=== PATIENT | male | born 1995 | race Asian ===

== ENCOUNTER 2016-09-15 20:47 | Inpatient (IN) | payer OTHER ==
[~2016-09-15] VITALS: Ht 177.8 cm; Wt 71.2 kg
[2016-09-15 21:29] LABS: URINE APPEARANCE CLOUDY (CLEAR); URINE BILIRUBIN NEG (NEG); URINE COLOR DK YELLOW; URINE NITRITE NEG (NEG); URINE PH 5.5 (4.5-7.5); URINE SPECIFIC GRAVITY 1.032 (1.000-1.030); UROBILINOGEN NEG (NEG)
[2016-09-15 21:30] LABS: MANUAL MICROSCOPIC REQUIRED? NO; REVIEW REQ? YES
[2016-09-15 21:30] LABS: BASO % 0.2 %; BASO ABS # 0.01 K/uL (0-0.2); COMPLETE YES; HEMATOCRIT 43.3 % (42-52); IG% 0.2 %; LYMPH % 33.3 %; LYMPH ABS # 1.97 K/uL (1.2-3.4); MEAN CELL VOLUME 90.6 fL (80-100); MEAN CORPUSCULAR HEMOGLOBIN 31.4 pg (25-34); MEAN CORPUSCULAR HGB CONC 34.6 g/dl (32-36); MONO % 3.4 %; NEUT % 59.9 %; PLATELET COUNT 240 K/uL (130-400); RED BLOOD COUNT 4.78 M/uL (4.7-6.1); WHITE BLOOD COUNT 5.92 K/uL (4.8-10.8)
[2016-09-15 21:38] LABS: URINE MUCUS PRESENT (NONE PRSENT); ZZUR CULT IF INDIC CLEAN CATCH YES
[2016-09-15 21:50] LABS: ACETAMINOPHEN < 2 ug/ml (10-30)
--- NOTE | 2016-09-15 21:52 | EMERGENCY ROOM VISIT NOTE ---
History Report prepared by Netta: Melissa Bender Under the Supervision of: Dr. Rainer Gaston D.O. First contact with patient: 21:32 Chief Complaint: MENTAL HEALTH EVALUATION Stated Complaint: MENTAL HEALTH History of Present Illness The patient is a 21 year old male who presents to the Emergency Room with complaints of persistent suicidal thoughts starting about a month ago. He had thoughts of wanting to jump off of the parking deck on campus. The patient reports depression related to school and relationships. The patient described his suicidal thoughts and depression to his [employer] at [facility] who called the police. The patient was evaluated by [facility] on site and was referred to the Emergency Room. He denies any suicide attempts, homicidal ideation, or hallucinations. He denies any recent alcohol use. He used marijuana about a month ago. He currently denies any pain. He denies fevers, chills, or any other complaints. Source of History: patient Onset: about a month ago Position: other (global) Symptom Intensity: No pain Quality: other (suicidal thoughts) Timing: other (persistent) Associated Symptoms: No chills, No fevers Review of Systems See HPI for pertinent positives and negatives. A total of ten systems were reviewed and were otherwise negative. Past Medical & Surgical Medical Problems: (1) No Known Active Medical Problems Family History Patient reports no known family medical history. Social History Smoking Status: Current Every Day Smoker Alcohol Use: none Drug Use: marijuana Marital Status: single Occupation Status: [employer] student Current/Historical Medications No Active Prescriptions or Reported Meds Allergies Coded Allergies: No Known Allergies (Unverified , 09/15/16) Physical Exam Vital Signs Date Time Temp Pulse Resp B/P Pulse Ox O2 Delivery O2 Flow Rate FiO2 09/15/16 20:53 37.0 83 18 137/91 97 Room Air Physical Exam GENERAL: Awake, alert, well-appearing, in no distress HENT: Normocephalic, atraumatic. Oropharynx unremarkable. EYES: Normal conjunctiva. Sclera non-icteric. NECK: Supple. No nuchal rigidity. FROM. No JVD. RESPIRATORY: Clear to auscultation. CARDIAC: Regular rate, normal rhythm. Extremities warm and well perfused. Pulses equal. ABDOMEN: Soft, non-distended. No tenderness to palpation. No rebound or guarding. No masses. RECTAL: Deferred. MUSCULOSKELETAL: Chest examination reveals no tenderness. The back is symmetrical on inspection without obvious abnormality. There is no CVA tenderness to palpation. No joint edema. LOWER EXTREMITIES: Calves are equal size bilaterally and non-tender. No edema. No discoloration. NEURO: Normal sensorium. No sensory or motor deficits noted. PSYCHIATRIC: Depressed affect. SKIN: No rash or jaundice noted. Medical Decision & Procedures Laboratory Results 09/15/16 21:16 Red Blood Count 4.78, Mean Corpuscular Volume 90.6, Mean Corpuscular Hemoglobin 31.4, Mean Corpuscular Hemoglobin Concent 34.6, Mean Platelet Volume 10.0, Neutrophils (%) (Auto) 59.9, Lymphocytes (%) (Auto) 33.3, Monocytes (%) (Auto) 3.4, Eosinophils (%) (Auto) 3.0, Basophils (%) (Auto) 0.2, Neutrophils # (Auto) 3.55, Lymphocytes # (Auto) 1.97, Monocytes # (Auto) 0.20, Eosinophils # (Auto) 0.18, Basophils # (Auto) 0.01 09/15/16 21:16 Test 09/15/16 21:07 09/15/16 21:16 Urine Color DK YELLOW Urine Appearance CLOUDY (CLEAR) Urine pH 5.5 (4.5-7.5) Urine Specific [place] 1.032 (1.000-1.030) Urine Protein NEG (NEG) Urine Glucose (UA) NEG (NEG) Urine Ketones 1+ (NEG) Urine Occult Blood NEG (NEG) Urine Nitrite NEG (NEG) Urine Bilirubin NEG (NEG) Urine Urobilinogen NEG (NEG) Urine Leukocyte Esterase NEG (NEG) Urine WBC (Auto) 1-5 /hpf (0-5) Urine RBC (Auto) 0-4 /hpf (0-4) Urine Hyaline Casts (Auto) 1-5 /lpf (0-5) Urine Epithelial Cells (Auto) 5-10 /lpf (0-5) Urine Bacteria (Auto) 1+ (NEG) Urine Crystals CALCIUM OXALATE (NONE Urine Mucus PRESENT (NONE PRSENT) Urine Opiates Screen NEG (NEG) Urine Methadone, Qualitative NEG (NEG) Urine Barbiturates NEG (NEG) Urine Phencyclidine (PCP) Level NEG (NEG) Ur Amphetamine/Methamphetamine NEG (NEG) MDMA (Ecstasy) Screen NEG (NEG) Urine Benzodiazepines Screen NEG (NEG) Urine Cocaine Metabolite NEG (NEG) Urine Marijuana (THC) NEG (NEG) White Blood Count 5.92 K/uL (4.8-10.8) Red Blood Count 4.78 M/uL (4.7-6.1) Hemoglobin 15.0 g/dL (14.0-18.0) Hematocrit 43.3 % (42-52) Mean Corpuscular Volume 90.6 fL (80-100) Mean Corpuscular Hemoglobin 31.4 pg (25-34) Mean Corpuscular Hemoglobin Concent 34.6 g/dl (32-36) Platelet Count 240 K/uL (130-400) Mean Platelet Volume 10.0 fL (7.4-10.4) Neutrophils (%) (Auto) 59.9 % Lymphocytes (%) (Auto) 33.3 % Monocytes (%) (Auto) 3.4 % Eosinophils (%) (Auto) 3.0 % Basophils (%) (Auto) 0.2 % Neutrophils # (Auto) 3.55 K/uL (1.4-6.5) Lymphocytes # (Auto) 1.97 K/uL (1.2-3.4) Monocytes # (Auto) 0.20 K/uL (0.11-0.59) Eosinophils # (Auto) 0.18 K/uL (0-0.5) Basophils # (Auto) 0.01 K/uL (0-0.2) RDW Standard Deviation 39.9 fL (36.4-46.3) RDW Coefficient of Variation 11.9 % (11.5-14.5) Immature Granulocyte % (Auto) 0.2 % Immature Granulocyte # (Auto) 0.01 K/uL (0.00-0.02) Anion Gap 10.0 mmol/L (3-11) Est Creatinine Clear Calc Drug Dose 128.6 ml/min Estimated GFR () 134.6 Estimated GFR (Non- 116.1 BUN/Creatinine Ratio 18.8 (10-20) Calcium Level 9.3 mg/dl (8.5-10.1) Total Bilirubin 0.5 mg/dl (0.2-1) Aspartate Amino Transf (AST/SGOT) 17 U/L (15-37) Alanine Aminotransferase (ALT/SGPT) 20 U/L (12-78) Alkaline Phosphatase 92 U/L (45-117) Total Protein 7.7 gm/dl (6.4-8.2) Albumin 4.5 gm/dl (3.4-5.0) Globulin 3.2 gm/dl (2.5-4.0) Albumin/Globulin Ratio 1.4 (0.9-2) Thyroid Stimulating Hormone (TSH) 1.020 uIu/ml (0.300-4.500) Salicylates Level < 1.7 mg/dl (2.8-20) Acetaminophen Level < 2 ug/ml (10-30) Ethyl Alcohol mg/dL < 3.0 mg/dl (0-3) Laboratory results reviewed by me ED Course 2131: The patient was evaluated in room A07. A complete history and physical exam was performed. 2244: Upon reexamination, the patient was resting comfortably. I discussed the test results and treatment plan with him. The patient will be evaluated for further management at [address] [place] [address]. Medical Decision Differential diagnosis includes but is not limited to depression, suicidal ideation, anxiety. pt in in no distress; will admit psychiatry unit Impression Primary Impression: Suicidal ideation Additional Impression: Depression Scribe Attestation The scribe's documentation has been prepared under my direction and personally reviewed by me in its entirety. I confirm that the note above accurately reflects all work, treatment, procedures, and medical decision making performed by me. Departure Information Dispostion Mental Health Acute Care Prescriptions No Active Prescriptions or Reported Meds Referrals No Doctor, Assigned (PCP) Patient Instructions My [facility] Problem Qualifiers
[2016-09-15 21:54] LABS: BUN/CREATININE RATIO 18.8 (10-20); CREATININE 0.93 mg/dl (0.60-1.40); POTASSIUM 3.5 mmol/L (3.5-5.1)
[2016-09-15 22:01] LABS: BENZODIAZEPINE, URINE NEG (NEG); COCAINE,URINE NEG (NEG); PHENCYCLIDINE, URINE NEG (NEG)
[2016-09-15 22:02] LABS: CALCIUM 9.3 mg/dl (8.5-10.1)
[2016-09-15 22:04] LABS: ALB/GLOB RATIO 1.4 (0.9-2); THYROID STIMULATING HORMONE 1.02 uIu/ml (0.300-4.500)
[2016-09-15] MEDS ORDERED: NURSING VERBAL MED ORDER ONE (23:15)
[2016-09-15 23:58] VITALS: O2SAT 95
[2016-09-16 00:14] VITALS: BP 133/93; PULSE 77; TEMP 36.6; Ht 177.8 cm; Wt 71.2 kg
[2016-09-16] MEDS ORDERED: ALUMINUM/MAGNESIUM SUSP 30 ML UDC PO PRN (01:00)
[2016-09-16] MEDS ORDERED: ACETAMINOPHEN 325 MG TAB PO PRN (01:00)
[2016-09-16] MEDS ORDERED: SODIUM CHLORIDE 0.65% NA SOLN 45 ML (OCEAN) PRN (01:00)
[2016-09-16] MEDS ORDERED: MAGNESIUM HYDROXIDE SUSP 30 ML UDC PO PRN (01:00)
[2016-09-16] MEDS ORDERED: BISMUTH SUBSALICYLATE PER ML OMNICELL CHARGE PO PRN (01:00)
[2016-09-16] MEDS ORDERED: hydrOXYzine HCL 25 MG TAB PO PRN ×2 (01:00)
[2016-09-16 06:49] VITALS: BP_SYST 120; BP_SYST 132; BP_DIAS 75; BP_DIAS 81; PULSE 64; PULSE 69; TEMP 36
--- NOTE | 2016-09-16 11:38 | Psychiatric History & Physical ---
History Date of Service September 16, 2016. Identifying Data Guanakito Travis is a 21-year-old male who is currently a [employer] student. He presented to the emergency with severe depression, suicidal thoughts with a plan to jump from the parking garage. Information is gathered from the patient and considered to be reliable. Chief Complaint "I have problems making connections.". History of Present Illness Guanakito Travis is a 21-year-old [employer] student from [employer], who reports that he has had increasing depression for the last 3 months. His stress started about a year ago. He and a friend purchased a car together and while driving from here to [place], the car . His friend wanted him to take care of all of the costs for repair and this caused a rift in their relationship. The patient then distanced himself from the [facility] community that he had been so close with. 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 Through that organization, he had been provided money from the [facility] [employer] for a project which she never followed through on. He has been feeling increasingly stressed and sad about these things. He began to have suicidal thoughts about one month ago and even went to the parking garage to check it out. He has been seeing a counselor, Cristino, at [facility] but has not seen a psychiatrist and has never been on medications. Yesterday, he had been talking with his preceptor at the [place] and revealed his suicidal thoughts who then recommended he come to the emergency room. The patient continues to be very depressed today and acknowledging his suicidal thoughts and plan. He reports that his sleep has been disturbed for the last 3 months, difficulty staying asleep although will get 8 hours of broken sleep per night his appetite has been "worse" and has lost more than several pounds over the last 3 months. He reports anxiety with panic attacks that are usually triggered by school stress and by the stress of being disconnected from his [facility] community. He denies problems with anger. He denies clear auditory or visual hallucinations but does endorse thought broadcasting, feeling that his girlfriend can understand his thinking. He also feels that his thoughts and behaviors are influenced by others and gives an example where his girlfriends family was talking about bread and eggs and he felt that this caused him the next day to want to go on a particular route to the grocery store. He also endorses manic symptoms. He said approximately one year ago he started spending a lot of money on travel. This was when he bought the car with a friend and they traveled between [place] and [place] over the course of 3 months. He said that he was taking risks that he doesn't normally take, was spending a lot of money and purchasing multiple credit cards. He says he has a history of having times of extreme happiness alternating with times of severe sadness. Past Psychiatric History Current OP Treatment: therapist Prior OP Treatment: no prior treatment Prior Psych Hospitalizations: none Access to a Gun: No Suicide Attempts: No Past Medication Trials None Past Medical/Surgical History History of Concussion/Seizure: No (1) none Allergies Allergies: Coded Allergies: No Known Allergies (Unverified , 09/15/16) Home Medications No Active Prescriptions or Reported Meds Family History Patient reports no known family medical history. History of Suicide: No History of Substance Abuse: No Psychiatric History: Yes (grandfather with schizophrenia) Alcohol Use Alcohol Use In Past 12 Months: Yes (the patient endorses occasional alcohol use with last consumption one month ago) AUDIT Total Score: 0 Smoking Use Smoking Status: Never Smoker Substance History The patient occasionally smokes marijuana, last consumption one month ago. He denies the use of other street drugs. Personal History Lives in: on campus in a dorm. Childhood: Grew up in [employer] [facility]. He was raised by his mother who is a physician and his father who is an technical staff engineer. He has 2 brothers and 2 sisters all of whom are still in [employer] [facility]. He is currently in a relationship with a girlfriend for the last 2 years. Education: started college Work History: Does not work outside of school Relationship History: never Children: none Legal History: none Psychological Trauma History: Other (denies) Review of Systems Constitutional: other (poor focus) Eyes: denies: as stated in HPI, blurred vision, discharge, double vision, eye pain, itching, no symptoms, other, photophobia, redness, tearing, visual changes ENT: denies: dental pain, ear discharge, ear pain, epistaxis, gum swelling, loss of hearing, mouth pain, mouth swelling, nasal congestion, nasal pain, no symptoms reported, other, rhinorrhea, see HPI, sore throat, stidor, throat swelling, tinnitus Cardiovascular: denies: chest pain, chest pressure, chest tightness, diaphoresis, no symptoms reported, other, palpitations, see HPI, syncope Respiratory: reports: short of breath (with anxiety) Gastrointestinal: diarrhea (occasional) Genitourinary - Male: reports: other (occasional difficulty initiating stream) Musculoskeletal: denies no symptoms reported, denies see HPI, denies back pain , denies gout, denies joint pain, denies joint swelling, denies muscle pain, denies muscle stiffness, denies neck pain, denies other Integumentary: denies no symptoms reported, denies see HPI, denies change in color, denies change in hair/nails, denies dryness, denies lesions, denies lumps , denies rash, denies other Neurologic: denies: dizziness, focal weakness, general weakness, headache, lethargy, memory loss, no symptoms, numbness, other, paresthesias, pre-existing deficit, see HPI, seizure, tics, tingling, tremors, vertigo Endocrine: denies: as stated in HPI, cold intolerance, goiter, hair changes, heat intolerance, no symptoms, other, polydipsia, polyuria, skin changes Hematologic / Lymphatic: denies: abnormal clotting, adenopathy, anemia, as stated in HPI, easy bleeding, easy bruising, gums bleeding, no symptoms, other, petechiae Examination Physical Examination Exam performed by Dr. Gaston in the ER has been reviewed and accepted his medical clearance for our unit Vital Signs Vital Signs Past 12 Hours Date Time Temp Pulse Resp B/P Pulse Ox O2 Delivery O2 Flow Rate FiO2 09/16/16 06:49 36.0 69 16 132/81 64 120/75 09/16/16 00:14 36.6 77 18 133/93 09/15/16 23:58 76 18 135/76 95 Laboratory Results Last 24 Hours Test 09/15/16 21:07 09/15/16 21:16 Urine Color DK YELLOW Urine Appearance CLOUDY Urine pH 5.5 Urine Specific [place] 1.032 Urine Protein NEG Urine Glucose (UA) NEG Urine Ketones 1+ Urine Occult Blood NEG Urine Nitrite NEG Urine Bilirubin NEG Urine Urobilinogen NEG Urine Leukocyte Esterase NEG Urine WBC (Auto) 1-5 /hpf Urine RBC (Auto) 0-4 /hpf Urine Hyaline Casts (Auto) 1-5 /lpf Urine Epithelial Cells (Auto) 5-10 /lpf Urine Bacteria (Auto) 1+ Urine Crystals CALCIUM OXALATE Urine Mucus PRESENT Urine Opiates Screen NEG Urine Methadone, Qualitative NEG Urine Barbiturates NEG Urine Phencyclidine (PCP) Level NEG Ur Amphetamine/Methamphetamine NEG MDMA (Ecstasy) Screen NEG Urine Benzodiazepines Screen NEG Urine Cocaine Metabolite NEG Urine Marijuana (THC) NEG White Blood Count 5.92 K/uL Red Blood Count 4.78 M/uL Hemoglobin 15.0 g/dL Hematocrit 43.3 % Mean Corpuscular Volume 90.6 fL Mean Corpuscular Hemoglobin 31.4 pg Mean Corpuscular Hemoglobin Concent 34.6 g/dl Platelet Count 240 K/uL Mean Platelet Volume 10.0 fL Neutrophils (%) (Auto) 59.9 % Lymphocytes (%) (Auto) 33.3 % Monocytes (%) (Auto) 3.4 % Eosinophils (%) (Auto) 3.0 % Basophils (%) (Auto) 0.2 % Neutrophils # (Auto) 3.55 K/uL Lymphocytes # (Auto) 1.97 K/uL Monocytes # (Auto) 0.20 K/uL Eosinophils # (Auto) 0.18 K/uL Basophils # (Auto) 0.01 K/uL RDW Standard Deviation 39.9 fL RDW Coefficient of Variation 11.9 % Immature Granulocyte % (Auto) 0.2 % Immature Granulocyte # (Auto) 0.01 K/uL Sodium Level 138 mmol/L Potassium Level 3.5 mmol/L Chloride Level 103 mmol/L Carbon Dioxide Level 25 mmol/L Anion Gap 10.0 mmol/L Blood Urea Nitrogen 18 mg/dl Creatinine 0.93 mg/dl Est Creatinine Clear Calc Drug Dose 128.6 ml/min Estimated GFR () 134.6 Estimated GFR (Non- 116.1 BUN/Creatinine Ratio 18.8 Random Glucose 84 mg/dl Calcium Level 9.3 mg/dl Total Bilirubin 0.5 mg/dl Aspartate Amino Transf (AST/SGOT) 17 U/L Alanine Aminotransferase (ALT/SGPT) 20 U/L Alkaline Phosphatase 92 U/L Total Protein 7.7 gm/dl Albumin 4.5 gm/dl Globulin 3.2 gm/dl Albumin/Globulin Ratio 1.4 Thyroid Stimulating Hormone (TSH) 1.020 uIu/ml Salicylates Level < 1.7 mg/dl Acetaminophen Level < 2 ug/ml Ethyl Alcohol mg/dL < 3.0 mg/dl Mental Examination During interview pt is: alert and oriented Appearance: appropriately dressed, appropriately groomed Eye contact is: good (at times staring) Motor behavior is: steady gait & station, no abnormal motor movements Speech: normal in rate, rhythm & volume (with accent) Affect: depressed, flat Mood is: depressed, anxious Thought process: goal directed Thought content: cognitive distortions, ideas of reference, thought broadcasting Suicidal thought are: present, Plan: present, Intent: denied Homicidal thoughts are: denied Hallucinations: denies auditory, denies visual Cognition: memory grossly intact, attention grossly intact Intelligence estimated to be: average Insight: impaired Judgement: impaired Impression / Recommendations Impression 21-year-old [employer] student who presents with depression and suicidality. He also provides a history of what may be a manic episode or year ago as well as mood lability over a longer period of time. He is also endorsing psychotic symptoms that could be a function of his bipolar disorder, the primary mental illness, or a psychotic component to his depression. For now we will approach this as a psychosis unspecified and start Risperdal 0.5 mg a.m. and 1 mg at bedtime. This will provide some mood stabilization in addition to targeting his psychosis. If mood remains persistently depressed we'll consider adding an antidepressant. His mother will be arriving from [employer] tomorrow and we will attempt to get additional history from her to help us clarify her diagnosis. We will order fasting labs for monitoring while on an atypical. At this time, the patient requires inpatient mental health treatment due to the severity of his condition and the risk for self-harm if discharged. Inventory Assets Strengths: Intelligence, support of family Needs: To abstain from cannabis Risk Factors Assessment Male: Yes : No /single/: Yes Higher / Fall in social status: No Access to guns: No Health problems: No Mental Health Diagnoses: No Substance use disorders: Yes Previous attempt: No Protective Factors Assessment : No Responsible for young children: No Employed: No Stable relationships: Yes Supportive family: Yes Recommendations (1) Unspecified psychosis 09/16 -Start Risperdal 0.5 mg a.m. and 1 mg at bedtime -Consider the use of an antidepressant if mood does not improve -Differential includes bipolar disorder given his history of spending and risk-taking behaviors -Differential also includes major depressive disorder severe with psychotic features -There is a family history and grandfather schizophrenia and so cannot rule out a primary thought disorder he will need to be followed over time -Obtain supplemental history from mother when she arrives from [employer] tomorrow -The patient will need psychiatric aftercare -Every 15 minute checks for safety -Reality orientation -Encourage participation in group and individual counseling -Obtain supplemental information from his therapist, Cristino at [facility] -Contact office of student affairs as needed Has been reviewed with Dr. Mildred Osullivan CPT Code Initial Hospital Care: [id number]
--- NOTE | 2016-09-16 11:46 | Psychiatric History & Physical ---
History Date of Service September 16, 2016. Identifying Data Guanakito Travis is a 21-year-old male who currently lives in [] [alone] with []. Guanakito Travis was admitted on a [201 voluntary] [302 involuntary] commitment. Patient is admitted from [home] [transfer from the medical floor]. The patient was brought to the ED by the [police] [family] [ambulance] [self transport]. Information provided by the patient is considered to be [reliable] [unreliable]. Chief Complaint "[]". Allergies Allergies: Coded Allergies: No Known Allergies (Unverified , 09/15/16) Home Medications No Active Prescriptions or Reported Meds Family History Patient reports no known family medical history. Alcohol Use Alcohol Use In Past 12 Months: No (denies) AUDIT Total Score: 0 Smoking Use Smoking Status: Never Smoker Examination Vital Signs Vital Signs Past 12 Hours Date Time Temp Pulse Resp B/P Pulse Ox O2 Delivery O2 Flow Rate FiO2 09/16/16 06:49 36.0 69 16 132/81 64 120/75 09/16/16 00:14 36.6 77 18 133/93 09/15/16 23:58 76 18 135/76 95 Laboratory Results Last 24 Hours Test 09/15/16 21:07 09/15/16 21:16 Urine Color DK YELLOW Urine Appearance CLOUDY Urine pH 5.5 Urine Specific [place] 1.032 Urine Protein NEG Urine Glucose (UA) NEG Urine Ketones 1+ Urine Occult Blood NEG Urine Nitrite NEG Urine Bilirubin NEG Urine Urobilinogen NEG Urine Leukocyte Esterase NEG Urine WBC (Auto) 1-5 /hpf Urine RBC (Auto) 0-4 /hpf Urine Hyaline Casts (Auto) 1-5 /lpf Urine Epithelial Cells (Auto) 5-10 /lpf Urine Bacteria (Auto) 1+ Urine Crystals CALCIUM OXALATE Urine Mucus PRESENT Urine Opiates Screen NEG Urine Methadone, Qualitative NEG Urine Barbiturates NEG Urine Phencyclidine (PCP) Level NEG Ur Amphetamine/Methamphetamine NEG MDMA (Ecstasy) Screen NEG Urine Benzodiazepines Screen NEG Urine Cocaine Metabolite NEG Urine Marijuana (THC) NEG White Blood Count 5.92 K/uL Red Blood Count 4.78 M/uL Hemoglobin 15.0 g/dL Hematocrit 43.3 % Mean Corpuscular Volume 90.6 fL Mean Corpuscular Hemoglobin 31.4 pg Mean Corpuscular Hemoglobin Concent 34.6 g/dl Platelet Count 240 K/uL Mean Platelet Volume 10.0 fL Neutrophils (%) (Auto) 59.9 % Lymphocytes (%) (Auto) 33.3 % Monocytes (%) (Auto) 3.4 % Eosinophils (%) (Auto) 3.0 % Basophils (%) (Auto) 0.2 % Neutrophils # (Auto) 3.55 K/uL Lymphocytes # (Auto) 1.97 K/uL Monocytes # (Auto) 0.20 K/uL Eosinophils # (Auto) 0.18 K/uL Basophils # (Auto) 0.01 K/uL RDW Standard Deviation 39.9 fL RDW Coefficient of Variation 11.9 % Immature Granulocyte % (Auto) 0.2 % Immature Granulocyte # (Auto) 0.01 K/uL Sodium Level 138 mmol/L Potassium Level 3.5 mmol/L Chloride Level 103 mmol/L Carbon Dioxide Level 25 mmol/L Anion Gap 10.0 mmol/L Blood Urea Nitrogen 18 mg/dl Creatinine 0.93 mg/dl Est Creatinine Clear Calc Drug Dose 128.6 ml/min Estimated GFR () 134.6 Estimated GFR (Non- 116.1 BUN/Creatinine Ratio 18.8 Random Glucose 84 mg/dl Calcium Level 9.3 mg/dl Total Bilirubin 0.5 mg/dl Aspartate Amino Transf (AST/SGOT) 17 U/L Alanine Aminotransferase (ALT/SGPT) 20 U/L Alkaline Phosphatase 92 U/L Total Protein 7.7 gm/dl Albumin 4.5 gm/dl Globulin 3.2 gm/dl Albumin/Globulin Ratio 1.4 Thyroid Stimulating Hormone (TSH) 1.020 uIu/ml Salicylates Level < 1.7 mg/dl Acetaminophen Level < 2 ug/ml Ethyl Alcohol mg/dL < 3.0 mg/dl Impression / Recommendations CPT Code Initial Hospital Care: [id number]
[2016-09-16] MEDS ORDERED: RISPERIDONE ODT 0.5MG PO ONE (12:00)
[2016-09-16] MEDS ORDERED: RISPERIDONE ODT 1MG PO SCH (22:00)
[2016-09-17 06:50] VITALS: BP_SYST 114; BP_SYST 127; BP_DIAS 68; BP_DIAS 85; PULSE 68; PULSE 72; TEMP 36.8
[2016-09-17 08:17] LABS: CHOLESTEROL/HDL RATIO 2.4
[2016-09-17] MEDS ORDERED: RISPERIDONE ODT 0.5MG PO SCH (09:00)
--- NOTE | 2016-09-17 10:55 | Psychiatric Progress Notes ---
Progress Note Date of Service September 17, 2016. 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 Chief Complaint "I want to be discharged from this place.". Subjective Patient was seen & assessed interval progress reviewed with Treatment Team. The patient comes to my office asking to be discharged. He starts by saying that he doesn't feel comfortable here, being unable to have his phone or computer, saying he would be more comfortable at home. He denies that he is having any more suicidal thought and today denies thought broadcasting or ideas of reference. As he goes on however, he says that he thinks another patient thinks that he is "worthless" despite that person never having said that, "I just know.". He also believes that he is causing trouble to the staff. On asbestos hazard abatement worker, the nurses reported that he was paranoid, thinking that we knew that his girlfriend wanted to breakup with him, wanting to get his phone to call her. He goes on to wonder whether he had ADHD because he has had trouble focusing for the last several months. He tries to study and his mind will be distracted by other things, but doesn't say what. We discuss the priority of treating his mood and thought distortions before a good evaluation could be made of these reports. I explain the process of the 72 hour notice and encourage him that 1 day is not enough given the seriousness of his SI with plan. His mother is to arrive today from [facility] Review of Systems Constitutional: + problem reported (Feels uncomfortable in this environment) ENT: No dental problems, No hearing loss, No nasal symptoms, No problem reported, No sore throat, No tinnitus, No trouble swallowing, No unusual epistaxis Respiratory: No cough, No dyspnea at rest, No dyspnea on exertion, No hemoptysis, No problem reported, No shortness of breath, No sputum, No wheezing Cardiovascular: No PND, No chest pain, No claudication, No edema, No orthopnea , No palpitations, No problem reported Abdomen: No GI bleeding, No constipation, No diarrhea, No nausea, No pain, No problem reported, No vomiting Musculoskeletal: No calf pain, No joint pain, No muscle pain, No problem reported, No swelling Neurologic: No balance problems, No memory loss, No numbness/tingling, No paralysis, No problem reported, No vertigo, No weakness Psychiatric: + problem reported (paranoia) Integumentary: No bleeding, No color change, No itch, No new/changing skin lesions, No problem reported, No rash Sleep Information Total Hours of Sleep: 5.00 Meal Information Percent of Breakfast Consumed: 100 Percent of Lunch Consumed: 100 Percent of Dinner Consumed: 100 Mental Status Exam During interview pt is: alert and oriented Appearance: appropriately dressed, appropriately groomed Eye contact is: good (at times staring) Motor behavior is: steady gait & station, no abnormal motor movements Speech: normal in rate, rhythm & volume (with accent) Affect: depressed, flat Mood is: depressed, anxious Thought process: goal directed Thought content: paranoid, cognitive distortions Suicidal thought are: denied, Plan: denied, Intent: denied Homicidal thoughts are: denied Hallucinations: denies auditory, denies visual Cognition: memory grossly intact, attention grossly intact Intelligence estimated to be: average Insight: impaired Judgement: impaired Impression The patient is already asking to leave and will sign a 72 hr notice. He presents with more paranoid ideation today, feeling persecuted by his peers, and thinking staff is part of a conspiracy about his girlfriend breaking up with him. Will increase Risperdal to 1 mg. BID. Mother is to arrive today and will get supplemental information and her estimations of his condition. Plan (1) Unspecified psychosis 09/16 -Start Risperdal 0.5 mg a.m. and 1 mg at bedtime -Consider the use of an antidepressant if mood does not improve -Differential includes bipolar disorder given his history of spending and risk-taking behaviors -Differential also includes major depressive disorder severe with psychotic features -There is a family history and grandfather schizophrenia and so cannot rule out a primary thought disorder he will need to be followed over time -Obtain supplemental history from mother when she arrives from [facility] tomorrow -The patient will need psychiatric aftercare -Every 15 minute checks for safety -Reality orientation -Encourage participation in group and individual counseling -Obtain supplemental information from his therapist, Cristino at [facility] -Contact office of student affairs as needed 09/17 - Increase Risperdal to 1 mg. BID - Has signed a 72 hr notice - Obtain supplemental from mother upon her arrival Discharge / Aftercare Planning Primary Care Physician: Name: [facility] Dr. Jolley, mother back home Therapist: Name: Bernadine Zabala Visit Code E&M Code: 47586 Inventory Assets Strengths: Intelligence, support of family Needs: To abstain from cannabis Risk Factors Assessment Male: Yes : No /single/: Yes Higher / Fall in social status: No Health problems: No Mental Health Diagnoses: No Substance use disorders: Yes Previous attempt: No Protective Factors Assessment : No Responsible for young children: No Employed: No Stable relationships: Yes Supportive family: Yes Data Vital Signs Last 24 Hrs: Date Time Temp Pulse Resp B/P Pulse Ox O2 Delivery O2 Flow Rate FiO2 09/17/16 06:50 36.8 68 14 114/68 72 127/85 Meds Administered Last 24 Hrs: Meds Administered (Past 24Hrs) Medications (Trade) Dose Ordered Sig/Elizabeth Route Start Time Stop Time Status Last Admin Dose Admin Risperidone (Risperdal M Tab) 0.5 mg QAM PO 09/17/16 09:00 10/17/16 08:59 09/17/16 08:44 0.5 MG Risperidone (Risperdal M Tab) 0.5 mg 1200 ONCE PO 09/16/16 12:00 09/16/16 12:01 DC 09/16/16 11:44 0.5 MG Risperidone (Risperdal M Tab) 1 mg HS PO 09/16/16 22:00 10/16/16 21:59 09/16/16 21:27 1 MG Lab Results Last 24 Hrs: Last 24 Hours Test 09/17/16 07:11 Fasting Glucose 85 mg/dl Triglycerides Level 47 mg/dl Cholesterol Level 118 mg/dl HDL Cholesterol 50 mg/dl LDL Cholesterol, Calculated 59 mg/dl VLDL Cholesterol, Calculated 9 mg/dl Cholesterol/HDL Ratio 2.4
[2016-09-17] MEDS: RISPERIDONE ODT 1MG PO SCH (21:58)
[2016-09-18 06:45] VITALS: BP_SYST 115; BP_SYST 133; BP_DIAS 73; BP_DIAS 86; PULSE 62; PULSE 76; TEMP 36.4
[2016-09-18] MEDS: RISPERIDONE ODT 1MG PO SCH (08:35)
[2016-09-18] MEDS ORDERED: RSP2 PO (11:07)
--- NOTE | 2016-09-18 11:14 | Discharge Instructions ---
Discharge Information Report Includes Report will include the: Discharge Instructions & Summary Admission Admission Date / Time: September 15, 2016 at 23:05 Reason for Admission: Depressive Disorder, Nos Discharge Discharge Diagnosis / Problem: Depression with psychotic features Condition at Discharge: Fair Discharge Goals Goal(s): Decrease discomfort, Improve disease control, Prevent Disease Progression Activity Recommendations Activity Limitations: resume your previous activity . Instructions / Follow-Up Instructions / Follow-Up . SPECIAL CARE INSTRUCTIONS: 1. Follow through with your scheduled aftercare appointments. If unable to keep an appointment, please call to reschedule. 2. Take your medication only as prescribed. Medication should not be changed or stopped without the approval of your doctor. In the event of worsening symptoms or concerns about side effects, contact your doctor immediately. 3. Utilize new healthy coping skills, anger management skills, and stress management skills learned during your hospitalization. Journal feelings and process them with a support person. Identify stressors or situations that may result in relapse, deterioration or inappropriate behaviors and develop a plan to deal with those issues. 4. If your coping skills are ineffective and you are in crisis, contact your outpatient providers for direction. If unable to reach your providers, please call the CAN HELP LINE AT or go to the closest Emergency Room. 5. Avoid alcohol and un-prescribed drugs. 6. You have been provided with the Mental Health Advance Directives Pamphlet for your review. AFTERCARE APPOINTMENTS: * Please call your insurance company prior to your scheduled appointment to confirm your aftercare providers are covered. Take your insurance information to your appointments. . Discharge / Aftercare Planning Primary Care Physician: Name: [facility] Dr. Jolley, mother back home Therapist: Name Of Therapist: Bernadine Zabala . Follow-Up Care Plan for Follow-Up Care: The patient is being referred to Dr. Cherry for OP treatment and the patient's mother will be with him for the next 2 weeks Current Hospital Diet Patient's current hospital diet: Regular Diet Discharge Diet Recommended Diet: Regular Diet Procedures Procedures Performed: No Pending Studies Pending Studies at Discharge: No Medical Emergencies . Who to Call and When: Medical Emergencies: For questions or emergencies related to your hospital stay, please contact the Inpatient Behavioral Health Unit at [phone]. A conservation technician is on-call 23/11 for the Behavioral Health Unit for emergencies At any time you feel your situation is an emergency, you may also call 911 immediately. . Non-Emergent Contact Non-Emergency issues call your: Psychiatrist, Therapist Advance Directives Existing Advance Directive: No Do You Have an Existing Mental: No Existing Living Will: No Existing Power of Heavy Equipment Supervisor: No Advance Directives Info Given: To Pt/S.O. Advance Directives Reason: Declines as Mental Health Visit. Discharge Summary Admission HPI Per the Admitting provider: Guanakito Travis is a 21-year-old [employer] student from [employer], who reports that he has had increasing depression for the last 3 months. His stress started about a year ago. He and a friend purchased a car together and while driving from here to [place], the car . His friend wanted him to take care of all of the costs for repair and this caused a rift in their relationship. The patient then distanced himself from the [employer] community that he had been so close with. 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 Through that organization, he had been provided money from the [employer] [facility] [employer] for a project which she never followed through on. He has been feeling increasingly stressed and sad about these things. He began to have suicidal thoughts about one month ago and even went to the parking garage to check it out. He has been seeing a counselor, Cristino, at [facility] but has not seen a psychiatrist and has never been on medications. Yesterday, he had been talking with his preceptor at the [facility] and revealed his suicidal thoughts who then recommended he come to the emergency room. The patient continues to be very depressed today and acknowledging his suicidal thoughts and plan. He reports that his sleep has been disturbed for the last 3 months, difficulty staying asleep although will get 8 hours of broken sleep per night his appetite has been "worse" and has lost more than several pounds over the last 3 months. He reports anxiety with panic attacks that are usually triggered by school stress and by the stress of being disconnected from his [employer] community. He denies problems with anger. He denies clear auditory or visual hallucinations but does endorse thought broadcasting, feeling that his girlfriend can understand his thinking. He also feels that his thoughts and behaviors are influenced by others and gives an example where his girlfriends family was talking about bread and eggs and he felt that this caused him the next day to want to go on a particular route to the grocery store. He also endorses manic symptoms. He said approximately one year ago he started spending a lot of money on travel. This was when he bought the car with a friend and they traveled between [place] and [place] over the course of 3 months. He said that he was taking risks that he doesn't normally take, was spending a lot of money and purchasing multiple credit cards. He says he has a history of having times of extreme happiness alternating with times of severe sadness. Hospital Course (1) Unspecified psychosis 09/16 -Start Risperdal 0.5 mg a.m. and 1 mg at bedtime -Consider the use of an antidepressant if mood does not improve -Differential includes bipolar disorder given his history of spending and risk-taking behaviors -Differential also includes major depressive disorder severe with psychotic features -There is a family history and grandfather schizophrenia and so cannot rule out a primary thought disorder he will need to be followed over time -Obtain supplemental history from mother when she arrives from [employer] tomorrow -The patient will need psychiatric aftercare -Every 15 minute checks for safety -Reality orientation -Encourage participation in group and individual counseling -Obtain supplemental information from his therapist, Cristino at [facility] -Contact office of student affairs as needed 09/17 - Increase Risperdal to 1 mg. BID - Has signed a 72 hr notice - Obtain supplemental from mother upon her arrival Risk Factors Assessment Male: Yes : No /single/: Yes Higher / Fall in social status: No Health problems: No Mental Health Diagnoses: No Substance use disorders: Yes Previous attempt: No Protective Factors Assessment : No Responsible for young children: No Employed: No Stable relationships: Yes Supportive family: Yes Day of Discharge Assessment COURSE OF HOSPITALIZATION: The patient was on our mental health unit for 3 days. He signed his 72 hour notice to request discharge. His initial presenting symptoms were that of depression with suicidal thoughts to jump from the parking garage but also determined to have some psychotic symptoms including thought broadcasting, ideas of reference and paranoia. He was therefore started on Risperdal 1 mg twice a day which will be converted to 2 mg all at bedtime at time of discharge. Stressors include poor performance at school, and having misappropriated funds from a group that he was president of to use to repair his own car. Mother has agreed that she will assist him financially to repay this debt. He is from [employer] and his mother traveled here yesterday. She is a physician. She met with her son yesterday and today and feels that he is at baseline. She denied any history of psychosis but admits that she did see some symptoms of depression. The patient denied any further suicidal thinking throughout his stay and was adamant that he was uncomfortable enough on the unit that he would not gain any more benefit. His mother was also in favor of discharge. Since she will be able to be with him for the next 2 weeks and possibly his girlfriend for the month following that, it was agreed that he could be discharged. He will be referred to see for follow-up care. DAY OF DISCHARGE ASSESSMENT: Today the patient is requesting discharge and his 72 hour notice remains in. He is denying any further thoughts of suicide and denies any further thought distortions including paranoia. I meet with he and his mother, review the discharge plans. He feels safe to be discharged, mother feels that he is back to baseline and feel safe with him discharging as well. behavioral services tech referring for outpatient psychiatric care and they will proceed with a meeting with his girlfriend today either by phone or in person. Today he is casually and appropriately dressed and groomed. Eye contact is good. Gait and station are within normal limits. Affect remains constricted. Speech is quiet but of normal rate and tone. Thoughts appear to be organized, goal- directed, and without overt evidence of psychosis. Recent and remote memory are intact per conversation. Intelligence is estimated to be average. Insight and judgment are improved over admission. Laboratory Test 09/15/16 21:07 09/15/16 21:16 09/17/16 07:11 Urine Color DK YELLOW Urine Appearance CLOUDY Urine pH 5.5 Urine Specific [place] 1.032 Urine Protein NEG Urine Glucose (UA) NEG Urine Ketones 1+ Urine Occult Blood NEG Urine Nitrite NEG Urine Bilirubin NEG Urine Urobilinogen NEG Urine Leukocyte Esterase NEG Urine WBC (Auto) 1-5 Urine RBC (Auto) 0-4 Urine Hyaline Casts (Auto) 1-5 Urine Epithelial Cells (Auto) 5-10 Urine Bacteria (Auto) 1+ Urine Crystals CALCIUM OXALATE Urine Mucus PRESENT Urine Synthetic Stimulants Pending Urine Opiates Screen NEG Urine Methadone, Qualitative NEG Urine Barbiturates NEG Urine Phencyclidine (PCP) Level NEG Ur Amphetamine/Methamphetamine NEG MDMA (Ecstasy) Screen NEG Urine Benzodiazepines Screen NEG Urine Cocaine Metabolite NEG Cannabinoids Comment Pending Urine Synthetic Cannabinoids Pending Ur Synthetic Cannabinoids Confirm Pending Urine Marijuana (THC) NEG White Blood Count 5.92 Red Blood Count 4.78 Hemoglobin 15.0 Hematocrit 43.3 Mean Corpuscular Volume 90.6 Mean Corpuscular Hemoglobin 31.4 Mean Corpuscular Hemoglobin Concent 34.6 Platelet Count 240 Mean Platelet Volume 10.0 Neutrophils (%) (Auto) 59.9 Lymphocytes (%) (Auto) 33.3 Monocytes (%) (Auto) 3.4 Eosinophils (%) (Auto) 3.0 Basophils (%) (Auto) 0.2 Neutrophils # (Auto) 3.55 Lymphocytes # (Auto) 1.97 Monocytes # (Auto) 0.20 Eosinophils # (Auto) 0.18 Basophils # (Auto) 0.01 RDW Standard Deviation 39.9 RDW Coefficient of Variation 11.9 Immature Granulocyte % (Auto) 0.2 Immature Granulocyte # (Auto) 0.01 Sodium Level 138 Potassium Level 3.5 Chloride Level 103 Carbon Dioxide Level 25 Anion Gap 10.0 Blood Urea Nitrogen 18 Creatinine 0.93 Est Creatinine Clear Calc Drug Dose 128.6 Estimated GFR () 134.6 Estimated GFR (Non- 116.1 BUN/Creatinine Ratio 18.8 Random Glucose 84 Calcium Level 9.3 Total Bilirubin 0.5 Aspartate Amino Transferase (AST) 17 Alanine Aminotransferase (ALT) 20 Alkaline Phosphatase 92 Total Protein 7.7 Albumin 4.5 Globulin 3.2 Albumin/Globulin Ratio 1.4 Thyroid Stimulating Hormone (TSH) 1.020 Salicylates Level < 1.7 Acetaminophen Level < 2 Ethyl Alcohol mg/dL < 3.0 Fasting Glucose 85 Triglycerides Level 47 Cholesterol Level 118 HDL Cholesterol 50 LDL Cholesterol, Calculated 59 VLDL Cholesterol, Calculated 9 Cholesterol/HDL Ratio 2.4 Total Time Total Time Spent (min): Greater than 30 minutes Total Time Included: examination of the patient, discharge planning, medication reconciliation, communication with other providers Tobacco Cessation at Discharge Smoking Status: Never Smoker FDA approved Prescription: non-smoker
[2016-09-20 18:34] LABS: SYNTHETIC CANNABINOIDS QL URIN NEGATIVE (Negative)
== END 2016-09-18 13:22 | disposition home or self-care (01) | DRG 885 ==
LOC: ENRESERVDT → ENRESERVTM → C.EDB 20:49 → C.MHU 23:05
PROVIDERS: ADMIT Psychiatry & Neurology Psychiatry; ATTEND Psychiatry & Neurology Psychiatry
DX: F32.3 Major depressive disorder, single episode, severe with psychotic features (principal); R45.851 Suicidal ideations; F29 Unspecified psychosis not due to a substance or known physiological condition; Z87.891 Personal history of nicotine dependence; Z81.8 Family history of other mental and behavioral disorders